=== PATIENT | female | born 1960 | race American Indian/Alaskan Native ===

== ENCOUNTER 2016-10-04 18:10 | Emergency (ER) | payer BC ==
[2016-10-04] MEDS ORDERED: TORADOL IM ONE (19:38)
[2016-10-04 19:47] VITALS: BP 176/83
--- NOTE | 2016-10-04 19:51 | Emergency Department Report ---
ED Back Pain/Injury HPI - General Chief Complaint: Back Pain/Injury Stated Complaint: SEVERE BACK /HIP PAIN Time Seen by Provider: 10/04/16 19:33 Source: patient Limitations: No Limitations - History of Present Illness Initial Comments: This is a 56-year-old female nontoxic, well nourished in appearance, no acute signs of distress visit ED complaining of intermittent chronic low back pain as radiating to bilateral hips and lower extremities. Patient denies any trauma. Denies any numbness, tingling, fever, chills, headache, stiff neck, chest pain, short of breath, abdominal pain, nausea or vomiting. Patient stated she does follow up with a primary care doctor to receive meloxicam with minimal relief. Patient states she received an x-ray that was normal to her low back with negative findings of any abnormalities. Patient denies any allergies. History of hypertension and diabetes. 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 Patient denies any bladder or bowel stability. MD Complaint: back pain -: Gradual, year(s) Similar Symptoms Previously: Yes Radiation: none Severity: mild Severity scale (0 -10): 7 Quality: aching Consistency: constant Improves With: none Worsens With: none Context: turning/twisting Associated Symptoms: denies other symptoms. denies: confusion, weakness, chest pain, numbness, difficulty walking, cough, difficulty urinating, diaphoresis, incontinence, fever/chills, constipation, headaches, abdominal pain, loss of appetite, malaise, nausea/vomiting, rash, seizure, shortness of breath, syncope - Related Data Home Medications Medication Instructions Recorded Confirmed Last Taken Meloxicam 15 mg PO QDAY 10/04/16 10/04/16 10/03/16 Previous Rx's Medication Instructions Recorded Last Taken Type Indomethacin [Indocin] 25 mg PO TID #15 capsule 09/27/14 10/03/16 Rx Cyclobenzaprine [Flexeril] 10 mg PO TID PRN #10 tablet 09/09/15 10/03/16 Rx Ibuprofen [Motrin] 800 mg PO Q8HR PRN #10 tablet 09/09/15 10/03/16 Rx Ibuprofen [Motrin 800 MG tab] 800 mg PO Q8HR PRN #30 tablet 10/04/16 Unknown Rx Allergies Allergy/AdvReac Type Severity Reaction Status Date / Time No Known Allergies Allergy Verified 10/04/16 19:48 ED Review of Systems ROS: Stated complaint: SEVERE BACK /HIP PAIN Other details as noted in HPI Constitutional: denies: chills, fever Eyes: denies: eye pain, eye discharge, vision change ENT: denies: ear pain, throat pain Respiratory: denies: cough, shortness of breath, wheezing Cardiovascular: denies: chest pain, palpitations Endocrine: no symptoms reported Gastrointestinal: denies: abdominal pain, nausea, diarrhea Genitourinary: denies: urgency, dysuria, discharge Musculoskeletal: denies: back pain, joint swelling, arthralgia Skin: denies: rash, lesions Neurological: denies: headache, weakness, paresthesias Psychiatric: denies: anxiety, depression Hematological/Lymphatic: denies: easy bleeding, easy bruising ED Past Medical Hx - Past Medical History Hx Hypertension: Yes Hx Diabetes: Yes - Surgical History Past Surgical History?: No - Social History Smoking Status: Current Some Day Smoker Substance Use Type: None - Medications Home Medications: Home Medications Medication Instructions Recorded Confirmed Last Taken Type Indomethacin [Indocin] 25 mg PO TID #15 capsule 09/27/14 10/04/16 10/03/16 Rx Cyclobenzaprine [Flexeril] 10 mg PO TID PRN #10 tablet 09/09/15 10/04/16 Rx Ibuprofen [Motrin] 800 mg PO Q8HR PRN #10 tablet 09/09/15 10/04/16 10/03/16 Rx Ibuprofen [Motrin 800 MG tab] 800 mg PO Q8HR PRN #30 tablet 10/04/16 Unknown Rx Meloxicam 15 mg PO QDAY 10/04/16 10/04/16 10/03/16 History ED Physical Exam - General Limitations: No Limitations General appearance: alert, in no apparent distress - Head Head exam: Present: atraumatic, normocephalic, normal inspection - Eye Eye exam: Present: normal appearance, PERRL, EOMI. Absent: scleral icterus, conjunctival injection, nystagmus, periorbital swelling, periorbital tenderness Pupils: Present: normal accommodation - ENT ENT exam: Present: normal exam, normal orophraynx, mucous membranes moist, TM's normal bilaterally, normal external ear exam - Neck Neck exam: Present: normal inspection, full ROM. Absent: tenderness, meningismus, lymphadenopathy, thyromegaly - Respiratory Respiratory exam: Present: normal lung sounds bilaterally. Absent: respiratory distress, wheezes, rales, rhonchi, stridor, chest wall tenderness, accessory muscle use, decreased breath sounds, prolonged expiratory - Cardiovascular Cardiovascular Exam: Present: regular rate, normal rhythm, normal heart sounds. Absent: bradycardia, tachycardia, irregular rhythm, systolic murmur, diastolic murmur, rubs, gallop - GI/Abdominal GI/Abdominal exam: Present: soft, normal bowel sounds. Absent: distended, tenderness, guarding, rebound, rigid, diminished bowel sounds - Rectal Rectal exam: Present: deferred - Extremities Exam Extremities exam: Present: normal inspection, full ROM, normal capillary refill. Absent: tenderness, pedal edema, joint swelling, calf tenderness - Back Exam Back exam: Present: normal inspection, full ROM, paraspinal tenderness (lumbar region). Absent: tenderness, CVA tenderness (R), CVA tenderness (L), muscle spasm, vertebral tenderness, rash noted - Expanded Back Exam Expanded Back exam: Present: normal rectal tone (as per patient). Absent: saddle anesthesia Back exam: Negative Straight Leg Raising: Left, Right - Neurological Exam Neurological exam: Present: alert, oriented X3, CN II-XII intact, normal gait, reflexes normal - Psychiatric Psychiatric exam: Present: normal affect, normal mood - Skin Skin exam: Present: warm, dry, intact, normal color. Absent: rash ED Course Vital Signs 10/04/16 10/04/16 18:29 19:47 Temperature 98.7 F Pulse Rate 75 72 Respiratory 16 20 Rate Blood Pressure 158/88 Blood Pressure 176/83 [Left] O2 Sat by Pulse 98 95 Oximetry - Reevaluation(s) Reevaluation #1: 10/04/16 20:48 Patient is speaking full sentences with no signs of distress. ED Medical Decision Making - Medical Decision Making ED course; this is a 56-year-old female presents with low back strain versus sciatica patient was examined myself. Patient is stable. The patient stated she has a previous x-ray last week with normal findings imaging has not been obtained. Patient received Toradol 60 mg IM in the ED. Patient stated she does not have any kidney abnormalities. Patient was instructed to follow up with her primary care doctor in 3-5 days for possible MRI or if symptoms worsen and continue return to emergency room as soon as possible. Patient received ibuprofen 800 mg by mouth at the time of discharge. At time time of discharge, the patient does not seem toxic or ill in appearance. No acute signs of distress noted. Patient agrees to discharge treatment plan of care. No further questions noted by the patient. Critical care attestation.: If time is entered above; I have spent that time in minutes in the direct care of this critically ill patient, excluding procedure time. ED Disposition Clinical Impression: Lumbar radiculopathy Low back strain Qualifiers: Encounter type: initial encounter Qualified Code(s): S39.012A - Strain of muscle, fascia and tendon of lower back, initial encounter Sciatica Qualifiers: Laterality: bilateral Qualified Code(s): M54.31 - Sciatica, right side Disposition: TO HOME OR SELFCARE Is pt being admited?: No Does the pt Need Aspirin: No Condition: Stable Instructions: Ibuprofen (By mouth), Sciatica (ED), Low Back Strain (ED), Lumbar Radiculopathy (ED) Additional Instructions: follow up with her primary care doctor in 3-5 days for possible MRI or if symptoms worsen and continue return to emergency room as soon as possible. Prescriptions: Ibuprofen [Motrin 800 MG tab] 800 mg PO Q8HR PRN #30 tablet PRN Reason: Pain Referrals: PRIMARY CARE, [Primary Care Provider] - 3-5 Days ABDI DE LOS SANTOS MD [Staff Physician] - 3-5 Days [facility] [Outside] - 3-[address] [facility] [Outside] - 3-5 Days Forms: Work/School Release Form(ED)
== END 2016-10-04 21:19 | disposition home or self-care (01) ==
LOC: ED 18:10
DX: M54.16 Radiculopathy, lumbar region (principal); S39.012A Strain of muscle, fascia and tendon of lower back, initial encounter; I10 Essential (primary) hypertension; F17.200 Nicotine dependence, unspecified, uncomplicated; E11.9 Type 2 diabetes mellitus without complications; X58.XXXA Exposure to other specified factors, initial encounter; Y93.89 Activity, other specified; Y92.89 Other specified places as the place of occurrence of the external cause; Y99.8 Other external cause status
CPT/HCPCS: 96372; 99282; J1885

== ENCOUNTER 2018-12-10 08:07 | Outpatient (CLI) | payer BC ==
--- NOTE | 2018-12-11 08:29 | Mammography Report ---
DIGITAL SCREENING MAMMOGRAM WITH CAD, 12/10/2018 INDICATION: Routine screening mammography. TECHNIQUE: Digital bilateral 2D mammography was obtained in the craniocaudal and mediolateral obliq ue projections. This examination was interpreted with the benefit of Computer-Aided Detection analysi s. COMPARISON: None available. FINDINGS: Breast Density: There are scattered areas of fibroglandular density. There is no evidence of dominant mass, suspicious calcifications or architectural distortion in eithe r breast. Benign right upper outer intraparenchymal lymph node. IMPRESSION: No mammographic evidence of malignancy. Follow up recommendation: Routine yearly BI-RADS Category 2: Benign. A "normal" or negative report should not discourage follow up or biopsy of a clinically significant f inding. A written summary of these findings will be mailed to the patient. The patient will be entered into a mammography reporting system which will generate a reminder letter for the patient's next appointmen t at the appropriate interval. The [employer] recommends yearly mammograms starting at age 40 and continuing as l suzy as a woman is in good health. Breast MRI is recommended for women with an approximate 20-25% or greater lifetime risk of breast cancer, including women with a strong family history of breast or ova aaron cancer or who have been treated for Hodgkin's disease. Signer Name: Jd Perkins MD Signed: 12/11/2018 8:24 AM Workstation Name: [id number]
== END 2018-12-10 08:08 | disposition home or self-care (01) ==
LOC: SPVWC 08:07
PROVIDERS: ATTEND Family Medicine
DX: Z12.31 Encounter for screening mammogram for malignant neoplasm of breast (principal)
CPT/HCPCS: 77067